=== PATIENT | male | born 1955 | race Caucasian/White ===

== ENCOUNTER 2019-01-06 10:22 | Emergency (ER) | payer OTHER ==
[~2019-01-06] VITALS: Ht 177.8 cm; Wt 72.6 kg
[2019-01-06 10:37] VITALS: Ht 177.8 cm; Wt 72.6 kg
[2019-01-06 12:51] VITALS: BP 170/106
== END 2019-01-06 12:51 | disposition home or self-care (01) ==
LOC: ED 10:22
DX: S51.801D Unspecified open wound of right forearm, subsequent encounter (principal); X58.XXXD Exposure to other specified factors, subsequent encounter; M54.2 Cervicalgia; M25.511 Pain in right shoulder

== ENCOUNTER 2019-01-28 04:09 | Emergency (ER) | payer OTHER ==
[~2019-01-28] VITALS: Ht 177.8 cm; Wt 74.8 kg
[2019-01-28 04:17] VITALS: Ht 177.8 cm; Wt 74.8 kg
[2019-01-28 09:50] VITALS: BP 158/91
== END 2019-01-28 09:50 | disposition home or self-care (01) ==
LOC: ED 04:09
DX: M54.12 Radiculopathy, cervical region (principal); M53.82 Other specified dorsopathies, cervical region
CPT/HCPCS: J1885; Q0092

== ENCOUNTER 2020-01-13 10:45 | Emergency (ER) | payer OTHER ==
[~2020-01-13] VITALS: Ht 177.8 cm; Wt 71.7 kg
[2020-01-13 10:52] VITALS: Ht 177.8 cm; Wt 71.7 kg
[2020-01-13 11:36] LABS: BASOPHIL % 0 % (0-2); PLATELET COUNT 258 x10^3mcL (130-400); RED CELL DISTRIBUTION WIDTH 18.1 % (11.5-14.5)
[2020-01-13 11:52] LABS: CALCIUM 8.6 mg/dL (8.5-10.1); CARBON DIOXIDE 27.4 mmol/L (21-32); CHLORIDE SERUM 95 mmol/L (98-107); CREATININE SERUM 1.2 mg/dL (0.7-1.3); GFR1 > 60 mL/min; GLUCOSE SERUM 170 mg/dL (74-106); POTASSIUM SERUM 4.3 mmol/L (3.5-5.1); SODIUM SERUM 129 mmol/L (136-145)
[2020-01-13 11:56] LABS: ALKALINE PHOSPHATASE 85 U/L (46-116); ALT/SGPT 39 U/L (16-63); AST/SGOT 38 U/L (15-37); BILIRUBIN TOTAL 0.39 mg/dL (0.20-1.00); LIPASE 47 IU/L (73-393); TOTAL PROTEIN, SERUM 7.7 g/dL (6.4-8.2)
[2020-01-13 12:02] LABS: ALBUMIN 2.6 g/dL (3.4-5.0)
[2020-01-13 14:55] VITALS: BP 130/88
== END 2020-01-13 14:56 | disposition home or self-care (01) ==
LOC: ED 10:45
PROVIDERS: Emergency Medicine
DX: K59.00 Constipation, unspecified (principal)
CPT/HCPCS: J2270; J2405; Q9967